=== PATIENT | female | born 2000 | race American Indian/Alaskan Native ===

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

== ENCOUNTER 2021-09-22 14:44 | Emergency (ER) | payer BC, OTHER ==
[2021-09-22] MEDS ORDERED: SODIUM CHLORIDE 0.9% 1000 ML IV SOLN IV ONE (16:04)
[2021-09-22] MEDS ORDERED: MORPHINE 4 MG/1 ML INJ IV ONE (16:05)
[2021-09-22] MEDS ORDERED: ONDANSETRON 4 MG/2 ML INJ IV ONE (16:05)
[2021-09-22] MEDS ORDERED: ACETAMINOPHEN 325 MG TAB PO ONE (16:06)
--- NOTE | 2021-09-22 16:32 | Emergency Department Report ---
ED General Adult HPI - General Chief complaint: Back Pain/Injury Stated complaint: BACK PAIN, HARD TO BREATHE Time Seen by Provider: 09/22/21 15:53 Source: patient Mode of arrival: Ambulatory Limitations: No Limitations - History of Present Illness Initial comments: Patient is a 21-year-old female presents emergency room with complaints of left- sided flank pain that began early this morning. She has associated urinary frequency, dysuria. Patient states that she is also been complaining of chest tightness and shortness of breath. She denies any cough, pleuritic pain, hemoptysis, calf pain, leg swelling, abd pain. She has associated nausea and f ever. She denies any vomiting or diarrhea. Patient states that she also has a chronic swelling in her sternum but she reports that it feels more swollen and is now causing her pain since yesterday. She denies any allergies to medications. She is a non-smoker. She denies any known sick contacts or recent travel. Severity scale (0 -10): 10 - Related Data Previous Rx's Medication Instructions Recorded Last Taken Type Acetaminophen/Codeine [Tylenol 1 tab PO Q6H PRN #12 tab 09/22/21 Unknown Rx /Codeine # 3 tab] cephALEXin [Keflex] 500 mg PO BID 7 Days #14 capsule 09/22/21 Unknown Rx Allergies Allergy/AdvReac Type Severity Reaction Status Date / Time No Known Allergies Allergy Unverified 09/22/21 15:45 ED Review of Systems ROS: Stated complaint: BACK PAIN, HARD TO BREATHE Other details as noted in HPI Comment: All other systems reviewed and negative ED Past Medical Hx - Social History Smoking Status: Never Smoker Substance Use Type: None - Medications Home Medications: Home Medications Medication Instructions Recorded Confirmed Last Taken Type Acetaminophen/Codeine [Tylenol 1 tab PO Q6H PRN #12 tab 09/22/21 Unknown Rx /Codeine # 3 tab] cephALEXin [Keflex] 500 mg PO BID 7 Days #14 capsule 09/22/21 Unknown Rx ED Physical Exam - General Limitations: No Limitations General appearance: alert, in no apparent distress - Head Head exam: Present: atraumatic, normocephalic - Eye Eye exam: Present: normal appearance - ENT ENT exam: Present: mucous membranes dry - Respiratory Respiratory exam: Present: normal lung sounds bilaterally, other (mild edema present in the mid sternal region, no erythema, no increased warmth, no crepitus, no deformity). Absent: respiratory distress, wheezes, rales, rhonchi, stridor, accessory muscle use, decreased breath sounds, prolonged expiratory - Cardiovascular Cardiovascular Exam: Present: normal rhythm, tachycardia - GI/Abdominal GI/Abdominal exam: Present: soft, normal bowel sounds. Absent: distended, tenderness, guarding, rebound, rigid - Back Exam Back exam: Present: CVA tenderness (L). Absent: CVA tenderness (R) - Neurological Exam Neurological exam: Present: alert, oriented X3 - Psychiatric Psychiatric exam: Present: normal affect, normal mood - Skin Skin exam: Present: warm, dry, intact ED Course Vital Signs 09/22/21 09/22/21 15:42 21:38 Temperature 102.7 F H Pulse Rate 119 H 90 Respiratory 20 18 Rate Blood Pressure 162/93 150/84 [Right] O2 Sat by Pulse 99 99 Oximetry ED Medical Decision Making - Lab Data Result diagrams: 09/22/21 16:24 09/22/21 16:24 Lab Results 09/22/21 09/22/21 09/22/21 Range/Units 16:24 16:24 16:24 WBC 7.8 (4.5-11.0) K/mm3 RBC 4.42 (3.65-5.03) M/mm3 Hgb 13.0 (10.1-14.3) gm/dl Hct 39.3 (30.3-42.9) % MCV 89 (79-97) fl MCH 29 (28-32) pg MCHC 33 (30-34) % RDW 12.8 L (13.2-15.2) % Plt Count 296 (140-440) K/mm3 Lymph % (Auto) 3.1 L (13.4-35.0) % Luna % (Auto) 8.1 H (0.0-7.3) % Eos % (Auto) 0.9 (0.0-4.3) % Baso % (Auto) 0.3 (0.0-1.8) % Lymph # (Auto) 0.2 L (1.2-5.4) K/mm3 Luna # (Auto) 0.6 (0.0-0.8) K/mm3 Eos # (Auto) 0.1 (0.0-0.4) K/mm3 Baso # (Auto) 0.0 (0.0-0.1) K/mm3 Seg Neutrophils % 87.6 H (40.0-70.0) % Seg Neutrophils # 6.8 (1.8-7.7) K/mm3 Sodium 134 L (137-145) mmol/L Potassium 3.8 (3.6-5.0) mmol/L Chloride 98.3 (98-107) mmol/L Carbon Dioxide 20 L (22-30) mmol/L Anion Gap 20 mmol/L BUN 8 (7-17) mg/dL Creatinine 0.6 (0.6-1.2) mg/dL Estimated GFR > 60 ml/min BUN/Creatinine Ratio 13 % Glucose 95 (65-100) mg/dL Lactic Acid 1.10 (0.7-2.0) mmol/L Calcium 9.5 (8.4-10.2) mg/dL Total Bilirubin 0.20 (0.1-1.2) mg/dL AST 12 (5-40) units/L ALT 10 (7-56) units/L Alkaline Phosphatase 46 (35-129) units/L Troponin T < 0.010 (0.00-0.029) ng/mL Total Protein 8.4 H (6.3-8.2) g/dL Albumin 4.4 (3.9-5) g/dL Albumin/Globulin Ratio 1.1 % TSH (0.270-4.200) mlU/mL HCG, Qual (Negative) Urine Color (Yellow) Urine Turbidity (Clear) Urine pH (5.0-7.0) Ur Specific [place] (1.003-1.030) Urine Protein (Negative) mg/dL Urine Glucose (UA) (Negative) mg/dL Urine Ketones (Negative) mg/dL Urine Blood (Negative) Urine Nitrite (Negative) Urine Bilirubin (Negative) Urine Urobilinogen (<2.0) mg/dL Ur Leukocyte Esterase (Negative) Urine WBC (Auto) (0.0-6.0) /HPF Urine RBC (Auto) (0.0-6.0) /HPF U Epithel Cells (Auto) (0-13.0) /HPF Urine Mucus /HPF Urine Yeast (Budding) /HPF 12/20/21 12/20/21 12/20/21 Range/Units 16:24 16:59 19:28 WBC (4.5-11.0) K/mm3 RBC (3.65-5.03) M/mm3 Hgb (10.1-14.3) gm/dl Hct (30.3-42.9) % MCV (79-97) fl MCH (28-32) pg MCHC (30-34) % RDW (13.2-15.2) % Plt Count (140-440) K/mm3 Lymph % (Auto) (13.4-35.0) % Luna % (Auto) (0.0-7.3) % Eos % (Auto) (0.0-4.3) % Baso % (Auto) (0.0-1.8) % Lymph # (Auto) (1.2-5.4) K/mm3 Luna # (Auto) (0.0-0.8) K/mm3 Eos # (Auto) (0.0-0.4) K/mm3 Baso # (Auto) (0.0-0.1) K/mm3 Seg Neutrophils % (40.0-70.0) % Seg Neutrophils # (1.8-7.7) K/mm3 Sodium (137-145) mmol/L Potassium (3.6-5.0) mmol/L Chloride (98-107) mmol/L Carbon Dioxide (22-30) mmol/L Anion Gap mmol/L BUN (7-17) mg/dL Creatinine (0.6-1.2) mg/dL Estimated GFR ml/min BUN/Creatinine Ratio % Glucose (65-100) mg/dL Lactic Acid (0.7-2.0) mmol/L Calcium (8.4-10.2) mg/dL Total Bilirubin (0.1-1.2) mg/dL AST (5-40) units/L ALT (7-56) units/L Alkaline Phosphatase (35-129) units/L Troponin T (0.00-0.029) ng/mL Total Protein (6.3-8.2) g/dL Albumin (3.9-5) g/dL Albumin/Globulin Ratio % TSH 0.823 (0.270-4.200) mlU/mL HCG, Qual Negative (Negative) Urine Color Yellow (Yellow) Urine Turbidity Clear (Clear) Urine pH 6.0 (5.0-7.0) Ur Specific [place] 1.011 (1.003-1.030) Urine Protein <15 mg/dl (Negative) mg/dL Urine Glucose (UA) Neg (Negative) mg/dL Urine Ketones Neg (Negative) mg/dL Urine Blood Mod (Negative) Urine Nitrite Neg (Negative) Urine Bilirubin Neg (Negative) Urine Urobilinogen < 2.0 (<2.0) mg/dL Ur Leukocyte Esterase Tr (Negative) Urine WBC (Auto) 7.0 H (0.0-6.0) /HPF Urine RBC (Auto) 2.0 (0.0-6.0) /HPF U Epithel Cells (Auto) 5.0 (0-13.0) /HPF Urine Mucus Few /HPF Urine Yeast (Budding) Few /HPF Vital Signs 09/22/21 09/22/21 15:42 21:38 Temperature 102.7 F H Pulse Rate 119 H 90 Respiratory 20 18 Rate Blood Pressure 162/93 150/84 [Right] O2 Sat by Pulse 99 99 Oximetry - Radiology Data Radiology results: report reviewed Ordering Physician: JAIME NAJERA Date of Service: 09/22/21 Procedure(s): CT abdomen pelvis w con Accession Number(s): [id number] cc: JAIME NAJERA CT CHEST, ABDOMEN, AND PELVIS WITH CONTRAST INDICATION / CLINICAL INFORMATION: left flank pain, fever. Chest pain with shortness of breath. TECHNIQUE: Axial CT images were obtained through the chest, abdomen, and pelvis after 100 cc Omnipaque [address] scans at this location are performed using CT dose reduction for ALARA by means of automated exposure control. COMPARISON: None available. FINDINGS: HEART: No significant abnormality. CORONARY ARTERY CALCIFICATION: None. THORACIC AORTA: No significant abnormality. MEDIASTINUM / MILA: No significant abnormality. PLEURA: No pleural effusion. No pneumothorax. LUNGS: No acute air space or interstitial disease. ADDITIONAL CHEST FINDINGS: No large central pulmonary embolus identified. Evaluation for PE is limited on this non-CTA exam. LIVER: No significant abnormality. GALLBLADDER: No significant abnormality. BILE DUCTS: No significant abnormality. PANCREAS: No significant abnormality. SPLEEN: No significant abnormality. ADRENALS: No significant abnormality. RIGHT KIDNEY / URETER: No significant abnormality. No hydronephrosis or evidence of pyelonephritis LEFT KIDNEY / URETER: Tiny cyst at the upper pole. No hydronephrosis or evidence of pyelonephritis. STOMACH and SMALL BOWEL: No significant abnormality. COLON: No significant abnormality. APPENDIX: No significant abnormality. PERITONEUM: No free fluid. No free air. No fluid collection. LYMPH NODES: No significant adenopathy. AORTA / ARTERIES: No significant abnormality. IVC / VEINS: No significant abnormality. URINARY BLADDER: Mild thickening of urinary bladder. REPRODUCTIVE ORGANS: No significant abnormality. ADDITIONAL FINDINGS: None. SKELETAL SYSTEM: No significant abnormality. IMPRESSION: 1. Mild thickening of the urinary bladder is nonspecific but can be seen with cystitis. Recommend correlation with urinalysis. No CT evidence of pyelonephritis or hydronephrosis. 2. No acute abnormality in the chest. Signer Name: Margot Sierra MD Signed: 09/22/2021 9:18 PM Workstation Name: [id number] Transcribed By: DB Dictated By: MARGOT SIERRA MD Electronically Authenticated By: MARGOT SIERRA MD Signed Date/Time: 09/22/212117 DD/ 09 TD/TT: Print Ordering Physician: JAIME NAJERA Date of Service: 09/22/21 Procedure(s): CT chest w con Accession Number(s): [id number] cc: JAIME NAJERA CT CHEST, ABDOMEN, AND PELVIS WITH CONTRAST INDICATION / CLINICAL INFORMATION: left flank pain, fever. Chest pain with shortness of breath. TECHNIQUE: Axial CT images were obtained through the chest, abdomen, and pelvis after 100 cc Omnipaque [address] scans at this location are performed using CT dose reduction for ALARA by means of automated exposure control. COMPARISON: None available. FINDINGS: HEART: No significant abnormality. CORONARY ARTERY CALCIFICATION: None. THORACIC AORTA: No significant abnormality. MEDIASTINUM / MILA: No significant abnormality. PLEURA: No pleural effusion. No pneumothorax. LUNGS: No acute air space or interstitial disease. ADDITIONAL CHEST FINDINGS: No large central pulmonary embolus identified. Evaluation for PE is limited on this non-CTA exam. LIVER: No significant abnormality. GALLBLADDER: No significant abnormality. BILE DUCTS: No significant abnormality. PANCREAS: No significant abnormality. SPLEEN: No significant abnormality. ADRENALS: No significant abnormality. RIGHT KIDNEY / URETER: No significant abnormality. No hydronephrosis or evidence of pyelonephritis LEFT KIDNEY / URETER: Tiny cyst at the upper pole. No hydronephrosis or evidence of pyelonephritis. STOMACH and SMALL BOWEL: No significant abnormality. COLON: No significant abnormality. APPENDIX: No significant abnormality. PERITONEUM: No free fluid. No free air. No fluid collection. LYMPH NODES: No significant adenopathy. AORTA / ARTERIES: No significant abnormality. IVC / VEINS: No significant abnormality. URINARY BLADDER: Mild thickening of urinary bladder. REPRODUCTIVE ORGANS: No significant abnormality. ADDITIONAL FINDINGS: None. SKELETAL SYSTEM: No significant abnormality. IMPRESSION: 1. Mild thickening of the urinary bladder is nonspecific but can be seen with cystitis. Recommend correlation with urinalysis. No CT evidence of pyelonephritis or hydronephrosis. 2. No acute abnormality in the chest. Signer Name: Margot Sierra MD Signed: 09/22/2021 9:18 PM Workstation Name: [id number] Transcribed By: DB Dictated By: MARGOT SIERRA MD Electronically Authenticated By: MARGOT SIERRA MD Signed Date/Time: 09/22/212117 DD/ 09 TD/TT: - Medical Decision Making Patient is a 21-year-old female presents emergency room with complaints of left- sided flank pain that began early this morning. She has associated urinary frequency, dysuria. Patient states that she is also been complaining of chest tightness and shortness of breath. She denies any cough, pleuritic pain, hemoptysis, calf pain, leg swelling, abd pain. She has associated nausea and fever. She denies any vomiting or diarrhea. Patient states that she also has a chronic swelling in her sternum but she reports that it feels more swollen and is now causing her pain since yesterday. She denies any allergies to medications. She is a non-smoker. She denies any known sick contacts or recent travel. Vitals with tachycardia, fever, code sepsis was initiated, given IV fluids and ceftriaxone. On exam: Left CVA tenderness,mild edema present in the mid sternal region, no erythema, no increased warmth, no crepitus, no deformity. Labs are stable, no leukocytosis. No lactic acidosis. UA shows evidence of UTI. CT abdomen pelvis and chest with contrast 1. Mild thickening of the urinary bladder is nonspecific but can be seen with cystitis. Recommend correlation with urinalysis. No CT evidence of pyelonephritis or hydronephrosis. 2. No acute abnormality in the chest. Discussed all findings with patient. Advised patient Please take medication as prescribed. Increase your fluid intake. Follow-up with your primary care doctor. Return to emergency room for any new or worsening symptoms. Recommend outpatient COVID-19 testing and if positive will need to self quarantine for 10 days from onset of symptoms. Critical care attestation.: If time is entered above; I have spent that time in minutes in the direct care of this critically ill patient, excluding procedure time. ED Disposition Clinical Impression: Chest tightness, SOB (shortness of breath) UTI (urinary tract infection) Qualifiers: Urinary tract infection type: acute cystitis Hematuria presence: without hematuria Qualified Code(s): N30.00 - Acute cystitis without hematuria Disposition: HOME / SELF CARE / HOMELESS Is pt being admited?: No Does the pt Need Aspirin: No Condition: Stable Instructions: Urinary Tract Infection, Adult Additional Instructions: Please take medication as prescribed. Increase your fluid intake. Follow-up with your primary care doctor. Return to emergency room for any new or worsening symptoms. Recommend outpatient COVID-19 testing and if positive will need to self quarantine for 10 days from onset of symptoms. Prescriptions: cephALEXin [Keflex] 500 mg PO BID 7 Days #14 capsule Acetaminophen/Codeine [Tylenol /Codeine # 3 tab] 1 tab PO Q6H PRN #12 tab PRN Reason: severe pain Referrals: PRIMARY CARE, [Primary Care Provider] - 3-5 Days Time of Disposition: 21:24 Print Language: LIBYAN
[2021-09-22] MEDS ORDERED: cefTRIAXone/NS 1 GM/50 ML 1 GM/50 ML BAG IV ONE (16:50)
[2021-09-22 16:52] LABS: Basophils % (Auto) 0.3 % (0.0-1.8); Eosinophils # (Auto) 0.1 K/mm3 (0.0-0.4); Eosinophils % (Auto) 0.9 % (0.0-4.3); Hematocrit 39.3 % (30.3-42.9); Lymphocytes # (Auto) 0.2 K/mm3 (1.2-5.4); Lymphocytes % (Auto) 3.1 % (13.4-35.0); Mean Corpuscular HGB Conc 33 % (30-34); Mean Corpuscular Volume 89 fl (79-97); Monocytes # (Auto) 0.6 K/mm3 (0.0-0.8); Monocytes % (Auto) 8.1 % (0.0-7.3); Platelet Count 296 K/mm3 (140-440); Red Blood Count 4.42 M/mm3 (3.65-5.03); Red Cell Distribution Width 12.8 % (13.2-15.2)
[2021-09-22 17:17] LABS: Alanine Aminotransferase 10 units/L (7-56); Albumin 4.4 g/dL (3.9-5); Blood Urea Nitrogen 8 mg/dL (7-17); Calcium 9.5 mg/dL (8.4-10.2); Hemolysis Index 0
[2021-09-22 17:22] LABS: BUN/Creatinine Ratio 13
[2021-09-22 20:06] LABS: Bilirubin,Urine NEG (Negative); Blood,Urine MOD (Negative); Color,Urine Yellow (Yellow); Mucus,Urine FEW /HPF; Protein,Urine <15 mg/dL mg/dL (Negative); Urobilinogen,Urine < 2.0 mg/dL (<2.0)
--- NOTE | 2021-09-22 21:22 | Cat Scan Report ---
CT CHEST, ABDOMEN, AND PELVIS WITH CONTRAST INDICATION / CLINICAL INFORMATION: left flank pain, fever. Chest pain with shortness of breath. TECHNIQUE: Axial CT images were obtained through the chest, abdomen, and pelvis after 100 cc Omnipaqu e [address] scans at this location are performed using CT dose reduction for ALANIS vieyra of automated exposure control. COMPARISON: None available. FINDINGS: HEART: No significant abnormality. CORONARY ARTERY CALCIFICATION: None. THORACIC AORTA: No significant abnormality. MEDIASTINUM / MILA: No significant abnormality. PLEURA: No pleural effusion. No pneumothorax. LUNGS: No acute air space or interstitial disease. ADDITIONAL CHEST FINDINGS: No large central pulmonary embolus identified. Evaluation for PE is limite d on this non-CTA exam. LIVER: No significant abnormality. GALLBLADDER: No significant abnormality. BILE DUCTS: No significant abnormality. PANCREAS: No significant abnormality. SPLEEN: No significant abnormality. ADRENALS: No significant abnormality. RIGHT KIDNEY / URETER: No significant abnormality. No hydronephrosis or evidence of pyelonephritis LEFT KIDNEY / URETER: Tiny cyst at the upper pole. No hydronephrosis or evidence of pyelonephritis. STOMACH and SMALL BOWEL: No significant abnormality. COLON: No significant abnormality. APPENDIX: No significant abnormality. PERITONEUM: No free fluid. No free air. No fluid collection. LYMPH NODES: No significant adenopathy. AORTA / ARTERIES: No significant abnormality. IVC / VEINS: No significant abnormality. URINARY BLADDER: Mild thickening of urinary bladder. REPRODUCTIVE ORGANS: No significant abnormality. ADDITIONAL FINDINGS: None. SKELETAL SYSTEM: No significant abnormality. IMPRESSION: 1. Mild thickening of the urinary bladder is nonspecific but can be seen with cystitis. Recommend cor relation with urinalysis. No CT evidence of pyelonephritis or hydronephrosis. 2. No acute abnormality in the chest. Signer Name: Juni Sierra MD Signed: 09/22/2021 9:18 PM Workstation Name: [id number]
[2021-09-22 21:39] VITALS: BP 150/84
--- NOTE | 2021-09-23 17:38 | Electrocardiograph Report ---
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
== END 2021-09-22 21:43 | disposition home or self-care (01) ==
LOC: ED 14:44
DX: R06.02 Shortness of breath (principal); R07.9 Chest pain, unspecified; N30.00 Acute cystitis without hematuria
CPT/HCPCS: 36415; 71260; 74177; 80053; 81001; 82140; 84443; 84484; 84703; 85025; 87040; 87086; 93005; 96365; 96375; 99284; J0696; J2270; J2405; J7030; Q9967; Q0162